=== PATIENT | male | born 1965 | race Caucasian/White ===

== ENCOUNTER 2023-05-14 06:01 | Emergency (ER) | payer OTHER, SELFPAY ==
[2023-05-14 06:02] VITALS: BP 140/78
[2023-05-14 07:07] VITALS: BMI 40.3
--- NOTE | 2023-05-14 07:32 | ED.GENMED ---
History of Present Illness
General
Chief Complaint: Cold/Flu/URI Symptoms
Source: patient
Time Seen by Provider: 05/14/23 07:20
Travel History
Have you had any contact with someone who has COVID-19?: No
Do you have any symptoms of coronavirus? Fever > 100 degrees, chills, cough, shortness of breath, sore throat, loss of taste or smell, muscle aches, or headache?: No
History of Present Illness
History of Present Illness:
57-year-old male presents to the emergency room complaining of cough, congestion which has been present for the past few days. Over the past 24 hours he has developed what he describes as a rattling in his chest. Patient states that he has had
pneumonia frequently. He first had pneumonia while serving in the in [place]. At that time he was quite ill and had ICU level care. Patient does smoke occasionally. Positive subjective fever.
Past History
Past History
ED Past Medical History: HTN and Hypercholesterolemia; Negative Asthma or NIDDM
ED Past Surgical History: Appendectomy
Social History
Tobacco: Former smoker
Alcohol: Occasional
Personal:
Living: with family
Phy Exam
Physical Exam
Physical Exam:
General: Awake, Alert, Oriented X3. No acute distress.
Vitals: unremarkable
Head: Atraumatic
Eyes: Pupils equal, EOMI
Throat: Airway intact, no exudates
Neck: Trachea midline
Lungs: Expiratory wheezing and some rhonchi bilaterally
Heart: Regular rate, no murmurs
Abd: Soft, Nontender, No pulsatile mass
Neuro: Nonfocal
Skin: Warm, dry, no rash
Extremities: pulses equal b/l, no edema
Course
Orders/Labs/Results
Orders:
Orders
05/14/23 07:31
Ipratropium/Albuterol Sulfate [Duoneb] 3 ml INH R NOW STA
CR Chest - 2 Views Urgent
Comment:
Reason For Exam: fever, cough
05/14/23 07:32
Ibuprofen [Motrin] 600 mg PO NOW STA
05/14/23 07:39
COVID-19 Antigen Urgent
Source: Nasal Swab
Influenza A+B Rapid Molecular Urgent
[facility] Source: Nasal Swab
Specimen Description:
Vital Signs
Initial and Last Documented VS:
Initial Vital Signs
Temp Pulse Resp BP Pulse Ox
97.9 F 74 24 140/78 96
05/14/23 06:02 05/14/23 06:02 05/14/23 06:02 05/14/23 06:02 05/14/23 06:02
Last Documented Vital Signs
Temp Pulse Resp BP Pulse Ox
97.9 F 73 18 116/72 96
05/14/23 06:02 05/14/23 08:40 05/14/23 08:40 05/14/23 08:40 05/14/23 08:40
MDM/Problems Addressed
Differential Diagnosis Includes:
pneumonia, flu, covid, acute bronchitis
MDM/Problems Addressed:
Patient presents with cough, body aches etc. Overall presentation sounds most consistent with influenza. Chest x-ray obtained which shows no acute abnormality. Flu test is positive. Patient has had symptoms for several days so outside of the
window for Tamiflu. Will discharge with an albuterol inhaler otherwise symptomatic care with ibuprofen and Tylenol.
*Radiology
Radiology exam reviewed: preliminary read by ED provider (No acute abnormalities on my personal review)
*Pulse Oximetry
Patient hypoxic: no
*Critical Care Note
Total Time (30-74mins, 75-104mins- exclusive of procedures): Not Applicable
ED Attending Note
-
Portions of this chart may have been created with voice recognition software.� Occasional wrong word or��sound alike� substitutions may have occurred due to the inherent limitations of voice recognition software.
Discharge Plan
Departure
Patient Disposition: Home (Routine Discharge)
Date of Disposition: 05/14/23
Time of Disposition: 08:30
Patient with high blood pressure during this ER visit?: Yes
Condition: Good
Discharge Problem:
Influenza A
Instructions: Flu, Adult ED, BLOOD PRESSURE
Prescriptions:
New
albuterol sulfate 90 mcg/actuation HFA aerosol inhaler
2 puff inhalation Q6H PRN (Reason: shortness of breath or wheezing) Qty: 8.5 0RF
Rx Instructions:
Dispense with spacer please
Referrals:
UNKNOWN - PT DOES,NOT KNOW [Family Provider] -
Interventions
Interventions:
*Risk Screen - Suicide Last Done: 05/14/23 06:02
*General Assessment Last Done: 05/14/23 07:07
*Neglect/Abuse Screening Last Done: 05/14/23 06:02
ED- Fall Risk Assessment Last Done: 05/14/23 07:12
*ED COVID-19 Vaccine History Last Done: 05/14/23 07:07
*Nursing Disposition Last Done: 05/14/23 08:41
ED- Pulmonary Assessment Last Done: 05/14/23 07:07
Discharge Date and Time
Discharge Date/Time: 05/14/23 08:42
[2023-05-14] MEDS: DUONEB 3 ML INH (07:37)
[2023-05-14] MEDS: MOTRIN 600 MG PO (07:37)
[2023-05-14 08:18] LABS: COVID-19 Antigen Negative (Negative)
[2023-05-14 08:40] VITALS: BP 116/72
== END 2023-05-14 08:42 | disposition home or self-care (01) ==
LOC: EMR 06:01
PROVIDERS: EMERGENCY PHYSICIAN Emergency Medicine
DX: J10.1 Influenza due to other identified influenza virus with other respiratory manifestations (principal); I10 Essential (primary) hypertension; E78.00 Pure hypercholesterolemia, unspecified; Z87.891 Personal history of nicotine dependence; Z90.49 Acquired absence of other specified parts of digestive tract
CPT/HCPCS: 99283; 94640; 71046; 87502; 87811